=== PATIENT | female | born 1960 | race Caucasian/White ===

== ENCOUNTER 2018-09-16 10:43 | Outpatient (CLI) | payer BC, MEDICARE ==
[~2018-09-16] VITALS: Ht 147.3 cm; Wt 55.0 kg
--- NOTE | ~2018-09-16 | HEMODYNAMI ---
PATIENT:JEN BYRD MEDICAL RECORD: [id number] : 60 LOCATION:[facility] ADMISSION DATE: 09/16/18 Generatedon:09/16/201813:46 Patient name: JEN BYRD Patient #: [id number] SSN: : 1960 Date of study: 09/16/2018 Page: Of Hemodynamic Procedure Report Patient Data Patient Demographics Procedure consent was obtained First Name: JEN Gender: Female Last Name: ROCHELLE : 1960 Patient #: [id number] Age: 58 year(s) Race: Unknown Additional ID: [id number] Contact details [address]: [address] [place] [address] State: [place] City: [place] Zip code: [address] Past Medical History Allergies Allergen Reaction Date Comments Reported Other allergy 09/16/2018 DULOXETINE, PENICILLINS Admission Admission Data Admission Date: 09/16/2018 Admission Time: 10:43 Admit Source: Other Lab Results Lab Result Date: 09/16/2018 Lab Result Time: 11:22 Biochemistry Name Units Result Min Max BUN mg/dl 11 --(-*--)-- 7 18 Creatinine mg/dl 0.7 --(*---)-- 0.6 1.3 CBC Name Units Result Min Max Hematocrit % 40.9 -*(----)-- 42 54 Hemoglobin g/dl 13 -*(----)-- 13.5 17.5 Procedure Procedure Types Cath Procedure Diagnostic Procedure LHC LHC w/Coronaries Sedation Charges Moderate Sedation up to 15 minutes PCI Procedure Coronary Stent Coronary Stent Initial Procedure Description Procedure Date Procedure Date: 09/16/2018 Procedure Start Time: 13:14 Procedure End Time: 13:42 Procedure Staff Name Function Gregorio Mueller MD Performing Physician Serge Moreira RT Monitor Miko Pizarro RT Scrub Cyndee Washington RN Nurse Procedure Data Cath Procedure Fluoroscopy Diagnostic fluoroscopy Total fluoroscopy Time: 4.7 time: 4.7 min min Diagnostic fluoroscopy Total fluoroscopy dose: 402 dose: 402 mGy mGy Contrast Material Contrast Material Type Amount (ml) Isovue 300 118 Entry Location Entry Primary Successful Side Size Upsize Upsize Entry Closure Succes sful Closure Location (Fr) 1 (Fr) 2 (Fr) Remarks Device Remarks Femoral Right 5 Fr 6 Fr Exoseal artery Short Estimated blood loss: 10 ml Diagnostic catheters Device Type Used For End Catheter Placement Medtronic Dexterity 5Fr Procedure JL 4.0 catheter (NO COST SUPPLY) Medtronic Dexterity 5Fr Procedure 3DRC catheter (NO COST SUPPLY) Medtronic Dexterity 5Fr Procedure Pigtail catheter(NO COST SUPPLY) Procedure Complications No complications Procedure Medications Medication Administration Route Dosage Oxygen etCO2 Nasal cannula 2 l/min Lidocaine 2% added to field 20 Heparin Flush Bag added to field 2 bags (1000units/500ml NS) 0.9% NaCl I.V. 100 ml/hr Versed I.V. 1 mg Fentanyl I.V. 50 mcg Versed I.V. 1 mg Fentanyl I.V. 50 mcg Versed I.V. 1 mg Fentanyl I.V. 50 mcg Heparin Bolus I.V. 5500 units Plavix P.O. 600 mg Hemodynamics Rest HGB: 13 (g/dl) Heart Rate: 91 (bpm) Pressure Samples Time Site Value (mmHg) Purpose Heart Use Rate(bpm) 13:24 LV 148/-6,16 Snapshot 98 13:24 LV 149/-5,16 Snapshot 99 Gradients Valve Time Site Site Mean SEP/DFP Peak To Heart Use 1 2 (mmHg) (sec/min) Peak Rate (mmHg) (bpm) Aortic 13:24 LV AO 99 Snapshots Pre Cath Intra NCS Post Cath Vital Signs Time Heart Resp SPO2 etCO2 NIBP (mmHg) Rhythm Pain Sedation Rate (ipm) (%) (mmHg) Status Level (bpm) 13:05:06 90 24 98 27.9 118/81(109) NSR 0 (11) 10(A) , No pain 13:09:08 93 14 96 49.9 120/79(90) NSR 0 (11) 10(A) , No pain 13:13:10 96 14 96 10.6 118/77(102) NSR 0 (11) 10(A) , No pain 13:17:11 95 12 97 16.6 125/79(100) NSR 0 (11) 10(A) , No pain 13:21:13 98 14 97 27.2 135/84(112) NSR 0 (11) 10(A) , No pain 13:25:19 100 14 97 55.2 143/80(109) NSR 0 (11) 10(A) , No pain 13:29:25 98 15 97 23.4 132/87(115) NSR 0 (11) 10(A) , No pain 13:33:28 103 24 97 37.8 135/82(106) NSR 0 (11) 10(A) , No pain 13:37:32 105 19 97 45.3 149/89(126) NSR 0 (11) 10(A) , No pain 13:41:38 105 17 97 43.1 148/94(126) NSR 0 (11) 10(A) , No pain Medications Time Medication Route Dose Verified Delivered Reason Notes Effectiveness by by 13:03:36 Oxygen etCO2 2 Gregorio Buffie used for Nasal l/min Hero Washington RN procedure cannula 13:03:43 Lidocaine 2% added 20ml Gregorio Gregorio for local to vial Hero Mueller MD anesthetic field 13:03:49 Heparin Flush added 2 Gregorio Gregorio used for Bag to bags Hero Mueller MD procedure (1000units/500ml field NS) 13:03:57 0.9% NaCl I.V. 100 Gregorio Buffie Per physician ml/hr Hero Washington RN 13:10:58 Versed I.V. 1 mg Gregorio Buffie for sedation Hero Washington RN 13:11:04 Fentanyl I.V. 50 Gregorio Buffie for sedation mcg Hero Washington RN 13:18:32 Versed I.V. 1 mg Gregorio Buffie for sedation Hero Washington RN 13:18:35 Fentanyl I.V. 50 Gregorio Buffie for sedation mcg Hero Washington RN 13:22:17 Versed I.V. 1 mg Gregorio Buffie for sedation Hero Washington RN 13:22:22 Fentanyl I.V. 50 Gregorio Buffie for sedation mcg Hero Washington RN 13:28:59 Heparin Bolus I.V. 5500 Gregorio Buffie for verif ied units Hero Washington RN anticoagulation with dr mueller 13:38:08 Plavix P.O. 600 Gregorio Buffie for mg Mueller MD Washington RN antiplatelet therapy Procedure Log Time Note 12:36:23 Informed consent obtained and on chart 12:36:27 Admit Source: Other 12:36:50 Diagnostic Cath status Elective 12:36:51 Time tracking: Regular hours (M-F 7:00 - 5:00) 12:36:56 Plan of Care:Hemodynamics will remain stable., Cardiac rhythm will remain stable., Comfort level will be maintained., Respiratory function will remain adequate., Patient/ family verbilizes understanding of procedure., Procedure tolerated without complication., Recovers from procedure without complications.. 12:37:12 H&P Date Dictated: 08/22/2018 Within 30 days and on chart., H&P Addendum completed by physician on day of procedure. (MUST COMPLETE FOR ALL OUTPATIENTS). 12:40:18 Lab Result : BUN 11 mg/dl 12:40:18 Lab Result : Creatinine 0.7 mg/dl 12:40:18 Lab Result : Hemoglobin 13 g/dl 12:40:18 Lab Result : Hematocrit 40.9 % 12:40:20 Lab results completed and on chart. 12:44:18 Miko Pizarro RT(R) sent for patient. Start room use. 12:50:18 Patient received from Pre/Post Procedure Room to CCL 2 Alert and oriented. Tansferred to table in Supine position. 12:50:20 Warm blankets applied, and daniel hugger turned on for patient comfort. 12:50:20 Correct patient and procedure confirmed by team. 12:50:21 ECG and BP/O2 sat monitors applied to patient. 12:50:23 Pre-procedure instructions explained to patient. 12:50:23 Pre-op teaching completed and patient verbalized understanding. 12:50:24 Family in waiting room. 12:50:25 Patient NPO since Midnight. 12:50:45 Patient allergic to Other allergyDULOXETINE, PENICILLINS 13:03:36 Oxygen 2 l/min etCO2 Nasal cannula was administered by Cyndee Washington RN; used for procedure; 13:03:43 Lidocaine 2% 20ml vial added to field was administered by Gregorio Mueller MD; for local anesthetic; 13:03:49 Heparin Flush Bag (1000units/500ml NS) 2 bags added to field was administered by Gregorio Mueller MD; used for procedure; 13:03:57 0.9% NaCl 100 ml/hr I.V. was administered by Cyndee Washington RN; Per physician; 13:04:01 Vital chart was started 13:07:34 Baseline sample Acquired. 13:07:40 Rhythm: sinus rhythm 13:07:41 Full Disclosure recording started 13:08:29 Is the patient allergic to Iodine/contrast media? No. 13:08:40 Is patient on blood thinner?No 13:08:41 Patient diabetic? Yes. 13:08:42 If diabetic: On Metformin? Yes 13:08:47 If on Metformin: Last Dose? 09/13/2018 13:08:51 Previous problem with sedation/anesthesia? No ? 13:08:54 Snore? Yes 13:08:55 Sleep apnea? No 13:08:55 Deviated septum? No 13:08:56 Opens mouth fully? Yes 13:08:57 Sticks out tongue? Yes 13:09:01 Airway obstruction? Yes COPD 13:09:05 Dentures? No ? 13:09:08 Pre procedure: right dorsailis pedis pulse 2+ Normal; easily identifiable; not easily obliterated 13:09:09 Patient pain scale 0/10 ?. 13:09:15 IV patent on arrival in left forearm with 0.9% NaCl at [facility]. 13:09:20 Right groin area was prepped with chlora-prep and draped in sterile fashion 13:09:20 Alarms reviewed by R. N. 13:09:21 Sharps counted by scrub and verified by R.N. 13:09:23 ACIST Syringe (54650) opened to sterile field. 13:09:24 Bag Decanter (2002) opened to sterile field. 13:09:24 Medline Cath Pack ([id number]) opened to sterile field. 13:09:27 ACIST Hand Control (69720) opened to sterile field. 13:09:28 ACIST Manifold (52371) opened to sterile field. 13:09:29 Tegaderm 4 x 4 (1626W) opened to sterile field. 13:09:30 SHEATH Prelude 5Fr 0.035 (ZWN-8C-57-035) opened to sterile field. 13:09:31 DIAGNOSTIC WIRE .035 260cm J wire (491743) opened to sterile field. 13:09:41 Physician arrived 13:09:42 --------ALL STOP TIME OUT------ 13::42 Final Timeout: patient, procedure, and site verified with staff and physician. All members of the team are in agreement. 13:09:44 Right groin site verified by team. 13:09:47 Physical assessment completed. ASA score P 2 - A patient with mild systemic disease as per Gregorio Mueller MD. 13:09:49 Sedation plan: IV Moderate Sedation Medication:Versed, Fentanyl 13:10:58 Versed 1 mg I.V. was administered by Cyndee Washington RN; for sedation; 13:11:04 Fentanyl 50 mcg I.V. was administered by Cyndee Washington RN; for sedation; 13:14:56 Procedure started. 13:14:59 Local anesthetic to right femoral artery with Lidocaine 2% by Gregorio Mueller MD.INITIAL ACCESS ONLY 13:17:18 A 5 Fr sheath was inserted into the Right Femoral artery 13:17:21 Zero performed for pressure channel P1 13:17:24 Zero performed for pressure channel P1 13:17:27 Zero performed for pressure channel P1 13:17:29 Zero performed for pressure channel P1 13:17:32 Zero performed for pressure channel P1 13:17:35 Zero performed for pressure channel P1 13:17:48 A Medtronic Dexterity 5Fr JL 4.0 catheter (NO COST SUPPLY) was advanced over the wire and used for Procedure. 13:18:32 Versed 1 mg I.V. was administered by Cyndee Washington RN; for sedation; 13:18:35 Fentanyl 50 mcg I.V. was administered by Cyndee Washington RN; for sedation; 13:19:07 LCA angiography performed. 13:20:45 Catheter exchanged over wire. 13:20:49 A Medtronic Dexterity 5Fr 3DRC catheter (NO COST SUPPLY) was advanced over the wire and used for Procedure. 13:21:59 RCA angiography performed. 13:22:17 Versed 1 mg I.V. was administered by Cyndee Washington RN; for sedation; 13:22:22 Fentanyl 50 mcg I.V. was administered by Cyndee Washington RN; for sedation; 13:22:33 Catheter exchanged over wire. 13:22:56 A Medtronic Dexterity 5Fr Pigtail catheter(NO COST SUPPLY) was advanced over the wire and used for Procedure. 13:23:17 SHEATH Prelude 6Fr 0.035 (OGN-8Z-37-035) opened to sterile field. 13:23:29 BMW 300cm [place] 2 J wire ([id number]) opened to sterile field. 13:23:30 INFLATOR Merit BasixCompak (VD3800) opened to sterile field. 13:23:35 TUBING High Pressure Extension Tubing (Hero) ([id number]) opened to sterile field. 13:24:15 LV gram done using RESENDIZ 13::18 Injector settings: Ml/sec: 10, Volume: 20, 13:24:19 LV hemodynamics recorded. 13:24:25 EF : 60 % 13:24:38 Catheter removed. 13:26:57 Sheath upsized to a 6 Fr Short. 13:27:45 GUIDE 6FR JR 4.0 catheter ([id number]) opened to sterile field. 13:27:51 6 Fr JR 4 guide catheter was inserted over the wire 13:28:59 Heparin Bolus 5500 units I.V. was administered by Cyndee Washington RN; for anticoagulation; verified with dr mueller 13:29:29 BMW wire advanced. 13:30:37 Wire advanced across lesion. 13:33:16 Place stent Inflation Number: 1 A INTEGRITY OTW 3.0 X 22 stent ([id number]) was prepped and advanced across the Prox RCA. The stent was deployed at 14 ZACHARY for 0:10 (min:sec). 13:34:02 Stent catheter was removed intact over wire. 13:34:02 Wire removed. 13:34:04 Guide catheter removed. 13:34:09 EXOSEAL 6Fr (EX600) opened to sterile field. 13:34:15 Sheath removed intact; hemostasis achieved with Exoseal to the Right Femoral artery. 13:34:17 Procedure ended.(Physican Out) 13:35:12 Fluoroscopy time 04.70 minutes. 13:35:15 Fluoroscopy dose: 402 mGy 13:35:15 Flurop Dose total: 402 13:35:19 Contrast amount:Isovue 300 118ml. 13:35:21 Sharps counted by scrub and verified by R.N. 13:35:25 Insertion/operative site no bleeding no hematoma. 13:35:28 Post-op/insertion site Right Femoral artery dressed using a 4 x 4 and Tegaderm. 13:35:32 Post right femoral artery:stable, soft, clean and dry 13:35:33 Post Procedure Pulses reassessed and unchanged 13:35:36 Post-procedure physical assessment completed. ASA score P 2 - A patient with mild systemic disease as per Gregorio Mueller MD. 13:35:38 Post procedure rhythm: unchanged. 13:35:41 Estimated blood loss: 10 ml 13:35:46 Post procedure instruction explained to patient.Patient verbalizes understanding. 13:35:47 Patient needs reinforcement of post procedure teaching. 13:36:05 Procedure type changed to Cath procedure, Diagnostic procedure, LHC, LHC w/Coronaries, Sedation Charges, Moderate Sedation up to 15 minutes, PCI procedure, Coronary Stent, Coronary Stent Initial 13:38:08 Plavix 600 mg P.O. was administered by Cyndee Washington RN; for antiplatelet therapy; 13:41:49 Procedure and supply charges have been captured, reviewed, submitted and are correct. 13:41:51 Procedure Complication : No complications 13:41:53 Vital chart was stopped 13:42:48 See physician's report for complete and final results. 13:42:50 Report given to Pre/Post Procedure Room. 13:42:53 Patient transfered to Pre/Post Procedure Room with Stretcher. 13:42:54 Procedure ended. 13:42:54 Full Disclosure recording stopped 13:42:59 End room use (Document Last) Intervention Summary Intervention Notes Time ActionType Lesion and Equipment Action# Pressure Duration Attributes Used 13:33:16 Place stent Prox RCA INTEGRITY 1 14 00:10 OTW 3.0 X 22 stent ([id number]) Device Usage Item Name Manufacture Quantity Catalog Number Hospital Part Current Minimal Lot# / Charge Number Stock Stock Serial# Code ACIST Syringe Acist 1 35523 481561 130153 [id number] 20 (25970) [employer] Bag Decanter Microtek 1 241571 93278 453686 5 () Medical Inc. Medline Cath Medline 1 [id number] 058433 37972 380246 5 Pack ([id number]) ACIST Hand Acist 1 12356 511793 237033 211174 5 Control (61563) [employer] Inc ACIST Manifold Acist 1 52266 908079 322804 096018 5 (12279) [employer] Inc Tegaderm 4 x 4 3M 1 1626W 126392 829775 758400 5 (1626W) SHEATH Prelude Merit 1 TKD-5M-20-035 649706 041193 595533 5 5Fr 0.035 Medical (NGX-1R-73-035) DIAGNOSTIC WIRE [place] 1 252754 965298 714560 515183 30 .035 260cm J wire (933188) Medtronic Medtronic 1 [id number] 738124 941710 5 Dexterity 5Fr JL 4.0 catheter (NO COST SUPPLY) Medtronic Medtronic 1 [id number] 445392 052875 5 Dexterity 5Fr 3DRC catheter (NO COST SUPPLY) Medtronic Medtronic 1 [id number] 993863 421881 5 Dexterity 5Fr Pigtail catheter(NO COST SUPPLY) SHEATH Prelude Merit 1 BAZ-0N-07-35 985384 7006645 867078 5 6Fr 0.035 Medical (ISW-6M-46-035) BMW 300cm [place] 1 [id number] 462829 814640 516786 5 [place] 2 J Vascular wire ([id number]) INFLATOR Merit Merit 1 FU8201 616180 001667 614600 15 [employer] (DV5424) TUBING High Merit 1 [id number] 671481 85532 130091 10 Pressure Medical Extension Tubing (Mueller) ([id number]) GUIDE 6FR JR Medtronic 1 [id number] 334817 49701 790502 1 4.0 catheter (GJ1UI67) INTEGRITY OTW Medtronic 1 [id number] 769644 067555 0 [id number] 3.0 X 22 stent ([id number]) EXOSEAL 6Fr Cardinal 1 EX600 312780 161892 594045 10 (EX600) Health Signature Audit [place] Stage Time Signature Unsigned Intra-Procedure 09/16/2018 Serge Moreira 1:46:31 PM RT(R) Signatures Monitor : Serge Moreira RT Signature : Date : Time : [facility] [address] [place], [place] [id number]
[2018-09-16] MEDS ORDERED: NEURONTIN 300300 MG PO (11:02)
[2018-09-16] MEDS ORDERED: GLUCOPHAGE850 MG PO (11:03)
[2018-09-16] MEDS ORDERED: KLONOPIN1 MG PO (11:03)
[2018-09-16] MEDS ORDERED: SINGULAIR10 MG PO (11:03)
[2018-09-16] MEDS ORDERED: LEVOXYL25 MCG PO (11:03)
[2018-09-16] MEDS ORDERED: ZANAFLEX2 M1 (11:04)
[2018-09-16] MEDS ORDERED: ALBUTEROL SULF8.5 GM INH (11:05)
[2018-09-16] MEDS ORDERED: BUPROPION HCL100 M1 PO (11:06)
[2018-09-16 11:07] VITALS: BP 158/77; Ht 147.3 cm; Wt 55.0 kg
[2018-09-16 11:30] LABS: BASOPHILS 0.1 % (0-2); EOSINOPHILS 2.2 % (0-7); HEMATOCRIT 40.9 % (36.0-48.0); IMMATURE GRANULOCYTES 0.3 % (0-5); LYMPHOCYTES 22.7 % (15-50); MCH 27.4 pg (26.0-34.0); MCHC 31.8 g/dL (31.0-37.0); MCV 86.1 fL (80.0-100.0); MONOCYTES 8.8 % (2-11); NEUTROPHILS 65.9 % (40-80); PLATELET COUNT 319 10x3/uL (130-400); RBC 4.75 10x6/uL (4.00-5.40); RDW 13.1 % (11.5-14.5)
[2018-09-16 11:37] LABS: CALC OSMOLALITY 281 mosm/kg (275-300); CALCIUM 8.9 mg/dL (8.5-10.1); CARBON DIOXIDE 38.4 mmol/L (21.0-32.0); CHLORIDE - SERUM 100 mmol/L (98-107); CREATININE - SERUM 0.7 mg/dL (0.6-1.3); GLUCOSE 170 mg/dL (74-106); POTASSIUM - SERUM 4.1 mmol/L (3.5-5.1); SODIUM 140 mmol/L (136-145); UREA NITROGEN 11 mg/dL (7-18); eGFR NON AFRICAN AMERICAN > 90 mL/min (90-120)
[2018-09-16] MEDS ORDERED: PLAVIX75 MG PO (13:51)
== END 2018-09-16 17:33 | disposition home or self-care (01) ==
LOC: D.CATH 10:43
PROVIDERS: Internal Medicine Cardiovascular Disease
DX: I25.119 Atherosclerotic heart disease of native coronary artery with unspecified angina pectoris (principal); Z01.812 Encounter for preprocedural laboratory examination

== ENCOUNTER → 2018-12-05 10:07 | Outpatient (CLI) | payer BC ==
[2018-09-16 11:07] VITALS: BMI 25.3
[~2018-12-05 10:07] MED LIST: ALBUTEROL SULF8.5 GM INH; BUPROPION HCL100 M1 PO; GLUCOPHAGE850 MG PO; KLONOPIN1 MG PO; LEVOXYL25 MCG PO; NEURONTIN 300300 MG PO; PLAVIX75 MG PO; SINGULAIR10 MG PO; ZANAFLEX2 M1
== END | disposition home or self-care (01) ==
LOC: D.RAD 10:07
DX: J44.9 Chronic obstructive pulmonary disease, unspecified (principal)

== ENCOUNTER → 2019-01-30 08:00 | Outpatient (CLI) | payer BC ==
[2018-09-16 11:07] VITALS: BMI 25.3
[~2019-01-30 08:00] MED LIST changes: +BAYER CHEWABLE81 MG PO; +CARTIA XT120 MG PO; +ISOSORBIDE MONO30 M1 PO; +SYMBICORT 16010.2 GM INH
== END | disposition home or self-care (01) ==
LOC: D.MAMMO 01-15 16:15
PROVIDERS: ATTEND Family Medicine
DX: Z12.31 Encounter for screening mammogram for malignant neoplasm of breast (principal)

== ENCOUNTER 2019-02-02 10:36 | Outpatient (CLI) | payer BC ==
[~2019-02-02] VITALS: Ht 147.3 cm; Wt 59.1 kg
--- NOTE | ~2019-02-02 | HEMODYNAMI ---
PATIENT:JEN BYRD MEDICAL RECORD: [id number] : 60 LOCATION:D.CAT ADMISSION DATE: 02/02/19 Generatedon:02/02/201915:54 Patient name: JEN BYRD Patient #: [id number] SSN: : 1960 Date of study: 02/02/2019 Page: Of Hemodynamic Procedure Report Patient Data Patient Demographics Procedure consent was obtained First Name: JEN Gender: Female Last Name: ROCHELLE : 1960 [facility] Initial: K Age: 58 year(s) Patient #: [id number] Race: Unknown Additional ID: [id number] Contact details [address]: [address] [place] [address] State: [place] City: [place] Zip code: [address] Past Medical History Allergies Allergen Reaction Date Comments Reported Other allergy 09/16/2018 DULOXETINE, PENICILLINS Penicillins 02/02/2019 Admission Admission Data Admission Date: 02/02/2019 Admission Time: 10:36 Procedure Procedure Types Cath Procedure Diagnostic Procedure [facility] w/Coronaries Sedation Charges Moderate Sedation up to 45 minutes PCI Procedure Coronary Stent Coronary Stent Initial Procedure Description Procedure Date Procedure Date: 02/02/2019 Procedure Start Time: 15:22 Procedure End Time: 15:48 Procedure Staff Name Function Jyoti Hensley RT Scrub Gregorio Monahan MD Performing Physician Carlos Eduardo Valenzuela RN Nurse Angelo Johnson RT Monitor Sylvia Nuno RT Scrub Miko Pizarro RT Monitor Procedure Data Cath Procedure Fluoroscopy Diagnostic fluoroscopy Total fluoroscopy Time: 3.6 time: 3.6 min min Diagnostic fluoroscopy Total fluoroscopy dose: 111 dose: 111 mGy mGy Contrast Material Contrast Material Type Amount (ml) Isovue 300 88 Entry Location Entry Primary Successful Side Size Upsize Upsize Entry Closure Succes sful Closure Location (Fr) 1 (Fr) 2 (Fr) Remarks Device Remarks Femoral Right 5 Fr 6 Fr Exoseal artery Short Estimated blood loss: 10 ml Diagnostic catheters Device Type Used For End Catheter Placement MULTIPACK JL 4.0 5Fr Procedure catheter MULTIPACK 3DRC 5Fr Procedure catheter MULTIPACK Pigtail 5 Fr Procedure catheter Procedure Complications No complications Procedure Medications Medication Administration Route Dosage 0.9% NaCl I.V. 100 ml/hr Oxygen NC 2 l/min Heparin Flush Bag added to field 2 bags (1000units/500ml NS) Lidocaine 2% added to field 20 Versed I.V. 2 mg Fentanyl I.V. 100 mcg Versed I.V. 1 mg Versed I.V. 1 mg Versed I.V. 1 mg Fentanyl I.V. 100 mcg Versed I.V. 1 mg Heparin Bolus I.V. 6000 units Nitroglycerin IC/IA I.C. 100 mcg Plavix P.O. 600 mg Hemodynamics Rest Heart Rate: 73 (bpm) Pressure Samples Time Site Value (mmHg) Purpose Heart Use Rate(bpm) 15:33 LV 137/-1,26 Snapshot 87 15:34 LV 133/-4,21 Snapshot 83 15:34 AO 141/70(98) Pullback 83 15:34 LV 159/-6,17 Pullback 83 Gradients Valve Time Site 1 Site 2 Mean SEP/DFP Peak To Heart Use (mmHg) (sec/min) Peak Rate (mmHg) (bpm) Aortic 15:34 LV AO 9 23 18 83 159/-6,17 141/70(98) Calculations Valve P-P Mean Valve Index Valve Source Name Gradient Area Flow (cm2) Aortic 18 9 18 9 Snapshots Pre Cath Intra NCS Post Cath Vital Signs Time Heart Resp SPO2 etCO2 NIBP (mmHg) Rhythm Pain Sedation Rate (ipm) (%) (mmHg) Status Level (bpm) 14:33:53 68 44 97 0 134/66(102) NSR 0 (11) 10(A) , No pain 14:38:03 78 15 90 0 120/81(99) NSR 0 (11) 10(A) , No pain 14:42:11 76 10 94 0 123/75(115) NSR 0 (11) 10(A) , No pain 14:46:19 75 14 97 0 141/71(108) NSR 0 (11) 10(A) , No pain 14:50:35 78 16 97 0 123/70(110) NSR 0 (11) 10(A) , No pain 14:54:45 76 11 97 0 126/67(106) NSR 0 (11) 10(A) , No pain 14:58:55 81 21 97 0 132/72(110) NSR 0 (11) 10(A) , No pain 15:03:09 79 24 97 0 139/67(95) NSR 0 (11) 10(A) , No pain 15:07:25 81 23 97 0 129/68(106) NSR 0 (11) 10(A) , No pain 15:17:54 82 16 97 0 154/83(119) NSR 0 (11) 10(A) , No pain 15:22:18 80 18 96 0 146/78(120) NSR 0 (11) 10(A) , No pain 15:26:30 84 30 92 0 120/79(101) NSR 0 (11) 9(A) , No pain 15:30:38 88 17 86 0 132/93(108) NSR 0 (11) 9(A) , No pain 15:34:54 83 16 91 0 140/81(126) NSR 0 (11) 9(A) , No pain 15:39:10 82 19 95 0 126/75(91) NSR 0 (11) 9(A) , No pain 15:43:26 84 15 96 0 120/73(100) NSR 0 (11) 9(A) , No pain 15:47:38 86 12 96 0 136/79(116) NSR 0 (11) 9(A) , No pain Medications Time Medication Route Dose Verified Delivered Reason Notes Effectiveness by by 14:31:55 0.9% NaCl I.V. 100 Carlos Eduardo Carlos Eduardo Per physician ml/hr Bianca Valnezuela RN, RN 14:32:10 Oxygen NC 2 Carlos Eduardo Carlos Eduardo for low 02 sats l/min Bianca Valenzuela RN RN 14:32:20 Heparin Flush added 2 Carlos Eduardo Carlos Eduardo used for Bag to bags Bianca Valenzuela procedure (1000units/500ml field CHANCE RN NS) 14:32:30 Lidocaine 2% added 20ml Carlos Eduardo Carlos Eduardo for local to vial Bianca Valenzuela anesthetic field MERON CHANCE 14:35:39 Versed I.V. 2 mg Carlos Eduardo Carlos Eduardo for sedation Bianca Valenzuela RN, RN 14:35:50 Fentanyl I.V. 100 Carlos Eduardo Carlos Eduardo for sedation mcg Bianca Valenzuela RN, RN 14:58:35 Versed I.V. 1 mg Carlos Eduardo Carlos Eduardo for sedation Bianca Valenzuela RN RN 15:17:56 Versed I.V. 1 mg Carlos Eduardo Carlos Eduardo for sedation Bianca Valenzuela RN RN 15:22:39 Versed I.V. 1 mg Carlos Eduardo Carlos Eduardo for sedation Bianca Valenzuela RN RN 15:24:48 Fentanyl I.V. 100 Carlos Eduardo Carlos Eduardo for sedation mcg Bianca Valenzuela RN RN 15:24:57 Versed I.V. 1 mg Carlos Eduardo Carlos Eduardo for sedation Bianca Valenzuela RN RN 15:38:28 Heparin Bolus I.V. 6,000 Carlos Eduardo Carlos Eduardo for units Bianca Valenzuela anticoagulation RN RN 15:39:18 Nitroglycerin I.C. 100 Carlos Eduardo Gregorio for IC/IA mcg Bianca Monahan MD vasodilation RN 15:47:24 Plavix P.O. 600 Carlos Eduardo Carlos Eduardo for mg Bianca Valenzuela antiplatelet RN RN therapy Procedure Log Time Note 14:20:39 Carlos Eduardo Valenzuela RN sent for patient. Start room use. 14:22:46 Time tracking: Regular hours (M-F 7:00 - 5:00) 14:22:50 Plan of Care:Hemodynamics will remain stable., Cardiac rhythm will remain stable., Comfort level will be maintained., Respiratory function will remain adequate., Patient/ family verbilizes understanding of procedure., Procedure tolerated without complication., Recovers from procedure without complications.. 14:22:54 Patient received from Pre/Post Procedure Room to CCL 2 Alert and oriented. Tansferred to table in Supine position. 14:22:55 Warm blankets applied, and daniel hugger turned on for patient comfort. 14:22:56 Correct patient and procedure confirmed by team. 14:22:57 Signed procedure consent form obtained from patient. 14:22:58 ECG and BP/O2 sat monitors applied to patient. 14:31:55 0.9% NaCl 100 ml/hr I.V. was administered by Carlos Eduardo Valenzuela RN; Per physician; 14:32:10 Oxygen 2 l/min NC was administered by Carlos Eduardo Valenzuela RN; for low 02 sats; 14:32:20 Heparin Flush Bag (1000units/500ml NS) 2 bags added to field was administered by Carlos Eduardo Valenzuela RN; used for procedure; 14:32:30 Lidocaine 2% 20ml vial added to field was administered by Carlos Eduardo Valenzuela RN; for local anesthetic; 14:32:42 Vital chart was started 14:33:16 Baseline sample Acquired. 14:33:19 Rhythm: sinus rhythm 14:33:20 Full Disclosure recording started 14:33:24 H&P Date Dictated: 02/02/2019 Within 30 days and on chart.. 14:33:25 Pre-op teaching completed and patient verbalized understanding. 14:33:25 Pre-procedure instructions explained to patient. 14:33:27 Family in patients room. 14:33:29 Patient NPO since Midnight. 14:33:36 Patient allergic to Penicillins 14:33:39 Is the patient allergic to Iodine/contrast media? No. 14:33:43 Was the patient premedicated? No 14:33:45 Is patient on blood thinner?No 14:33:46 Patient diabetic? Yes. 14:33:47 If diabetic: On Metformin? Yes 14:33:51 If on Metformin: Last Dose? 01/31/2019 14:33:53 ----Pre-sedation anethsthesia assessment.---- 14:33:55 Previous problem with sedation/anesthesia? No ? 14:33:56 Snore? Yes 14:33:58 Sleep apnea? No 14:33:59 Deviated septum? No 14:34:00 Opens mouth fully? Yes 14:34:01 Sticks out tongue? Yes 14:34:06 Airway obstruction? Yes COPD 14:34:09 Dentures? No ? 14:34:12 Pre procedure: right dorsailis pedis pulse 2+ Normal; easily identifiable; not easily obliterated 14:34:16 Patient pain scale 0/10 ?. 14:34:29 IV patent on arrival in left antecubital with 0.9% NaCl at 10ml/hr. 14:34:32 Lab results completed and on chart. 14:34:40 Right groin area was prepped with chlora-prep and draped in sterile fashion 14:34:44 Alarms reviewed by R. N. 14:34:45 Sharps counted by scrub and verified by R.N. 14:34:46 Final Timeout: patient, procedure, and site verified with staff and physician. All members of the team are in agreement. 14:34:46 --------ALL STOP TIME OUT------ 14:34:46 Physician arrived 14:34:48 Right groin site verified by team. 14:34:52 Maximum allowable Isovue 300 dose 300ml. Physician notified. (300ml for normal creatinines. For patients with creatinine of 1.7 or higher multiply weight(kg) x 5 divided by creatinine.) 14:34:56 Fire Safety Assessment: A--An alcohol-based skin anteseptic being used preoperatively., C--Open oxygen or nitrous oxide is being used., D--An ESU, laser, or fiber-optic light is being used. 14:34:59 Physical assessment completed. ASA score P 2 - A patient with mild systemic disease as per Gregorio Monahan MD. 14:35:02 Sedation plan: IV Moderate Sedation Medication:Versed, Fentanyl 14:35:39 Versed 2 mg I.V. was administered by Carlos Eduardo Valenzuela RN; for sedation; 14:35:50 Fentanyl 100 mcg I.V. was administered by Carlos Eduardo Valenzuela RN; for sedation; 14:58:35 Versed 1 mg I.V. was administered by Carlos Eduardo Valenzuela RN; for sedation; 15:01:39 rebooting the so 15:08:35 moving pt to room #3 secondary backup room to room#3 15:09:07 Full Disclosure recording stopped 15:13:54 PATIENT ARRIVED TO ROOM 3. TRANSFERRED TO BED. 15:14:07 Warm blankets applied, and daniel hugger turned on for patient comfort. 15:14:09 ECG and BP/O2 sat monitors applied to patient. 15:16:36 Vital chart was started 15:17:56 Versed 1 mg I.V. was administered by Carlos Eduardo Valenzuela RN; for sedation; 15:19:53 Baseline sample Acquired. 15:20:04 --------ALL STOP TIME OUT------ 15:20:04 Final Timeout: patient, procedure, and site verified with staff and physician. All members of the team are in agreement. 15:20:06 Right groin site verified by team. 15:20:09 Maximum allowable Isovue 300 dose 300ml. Physician notified. (300ml for normal creatinines. For patients with creatinine of 1.7 or higher multiply weight(kg) x 5 divided by creatinine.) 15:20:12 Fire Safety Assessment: A--An alcohol-based skin anteseptic being used preoperatively., C--Open oxygen or nitrous oxide is being used., D--An ESU, laser, or fiber-optic light is being used. 15:20:18 Physical assessment completed. ASA score P 2 - A patient with mild systemic disease as per Gregorio Monahan MD. 15::26 Sedation plan: IV Moderate Sedation Medication:Versed, Fentanyl 15::24 Zero performed for pressure channel P1 15::27 Procedure started. 15:: Full Disclosure recording started 15::37 Local anesthetic to right femoral artery with Lidocaine 2% by Gregorio Monahan MD.INITIAL ACCESS ONLY 15::39 Versed 1 mg I.V. was administered by Carlos Eduardo Valenzuela RN; for sedation; 15:23:24 Use device set Femoral Dx 15:23:26 ACIST Syringe (02287) opened to sterile field. 15:23:32 Bag Decanter (2002S) opened to sterile field. 15:23:33 ACIST Hand Control (18631) opened to sterile field. 15:23:34 ACIST Manifold (43505) opened to sterile field. 15:23:34 Tegaderm 4 x 4 (1626W) opened to sterile field. 15:23:38 Medline Cath Pack ([id number]) opened to sterile field. 15:23:38 DIAGNOSTIC WIRE .035 260cm J wire (553627) opened to sterile field. 15:23:39 DIAGNOSTIC Multipack 5Fr catheter set (OW8125) opened to sterile field. 15:23:40 SHEATH 5FR Bylas (EGS042) opened to sterile field. 15:24:11 Zero performed for pressure channel P1 15:24:48 Fentanyl 100 mcg I.V. was administered by Carlos Eduardo Valenzuela RN; for sedation; 15::57 Versed 1 mg I.V. was administered by Carlos Eduardo Valenzuela RN; for sedation; 15:28:43 A 5 Fr sheath was inserted into the Right Femoral artery 15:29:15 A MULTIPACK JL 4.0 5Fr catheter was advanced over the wire and used for Procedure. 15:30:36 LCA angiography performed. 15:30:38 Catheter exchanged over wire. 15:31:03 A MULTIPACK 3DRC 5Fr catheter was advanced over the wire and used for Procedure. 15:32:07 RCA angiography performed. 15:32:16 Catheter exchanged over wire. 15:32:28 A MULTIPACK Pigtail 5 Fr catheter was advanced over the wire and used for Procedure. 15:33:34 LV gram done using RESENDIZ 15:33:36 Injector settings: Ml/sec: 10, Volume: 20, 15:34:04 LV hemodynamics recorded. 15:34:25 EF : 60 % 15:35:12 SHEATH 6FR Bylas (JVO745) opened to sterile field. 15:35:12 INFLATOR Merit BasixCompak (IM2391) opened to sterile field. 15:35:13 BMW 300cm Straight [place] 2 wire ([id number]) opened to sterile field. 15:35:14 TUBING High Pressure Extension Tubing (Hero) ([id number]) opened to sterile field. 15:35:46 Sheath upsized to a 6 Fr Short. 15:36:12 GUIDE 6FR 3DRC catheter ([id number]) opened to sterile field. 15:36:46 6 Fr 3DRC guide catheter was inserted over the wire 15:38:28 Heparin Bolus 6,000 units I.V. was administered by Carlos Eduardo Valenzuela RN; for anticoagulation; 15:39:18 Nitroglycerin IC/IA 100 mcg I.C. was administered by Gregorio Monahan MD; for vasodilation; 15:41:00 BMW 300 wire advanced. 15:41:01 Wire advanced across lesion. 15:44:22 Place stent Inflation Number: 1 A JOSE J RX 3.0 x 30 stent ([id number]) was prepped and advanced across the Prox RCA. The stent was deployed at 12 ZACHARY for 0:10 (min:sec). 15:44:52 Stent catheter was removed intact over wire. 15:44:52 Wire removed. 15:44:54 Guide catheter removed. 15:45:28 EXOSEAL 6Fr (EX600) opened to sterile field. 15:46:20 Sheath removed intact; hemostasis achieved with Exoseal to the Right Femoral artery. 15:46:23 Procedure ended.(Physican Out) 15:46:43 Fluoroscopy time 03.60 minutes. 15:46:48 Fluoroscopy dose: 111 mGy 15:46:48 Flurop Dose total: 111 15:46:52 Contrast amount:Isovue 300 88ml. 15:46:54 Sharps counted by scrub and verified by R.N. 15:46:56 Post-op/insertion site Right Femoral artery dressed using a 4 x 4 and Tegaderm. 15:47:00 Post-procedure physical assessment completed. ASA score P 2 - A patient with mild systemic disease as per Carlos Eduardo Valenzuela RN. 15:47:04 Post procedure rhythm: sinus rhythm 15:47:11 Estimated blood loss: 10 ml 15:47:12 Post procedure instruction explained to patient.Patient verbalizes understanding. 15:47:12 Patient needs reinforcement of post procedure teaching. 15:47:24 Plavix 600 mg P.O. was administered by Carlos Eduardo Valenzuela RN; for antiplatelet therapy; 15:47:45 Procedure type changed to Cath procedure, Diagnostic procedure, LHC, LHC w/Coronaries, Sedation Charges, Moderate Sedation up to 45 minutes, PCI procedure, Coronary Stent, Coronary Stent Initial 15:48:18 Procedure and supply charges have been captured, reviewed, submitted and are correct. 15:48:21 Procedure Complication : No complications 15:48:24 Vital chart was stopped 15:48:24 See physician's report for complete and final results. 15:48:26 Report given to Pre/Post Procedure Room. 15:48:29 Patient transfered to Pre/Post Procedure Room with Bed. 15:48:30 Procedure ended. 15:48:30 Full Disclosure recording stopped 15:48:34 End room use (Document Last) Intervention Summary Intervention Notes Time ActionType Lesion and Equipment Used Action# Pressure Duration Attributes 15:44:[address] stent Prox RCA JOSE J RX 3.0 x 1 12 00:10 30 stent ([id number]) Device Usage Item Name Manufacture Quantity Catalog Hospital Part [facility] Lot# / Number Charge Number Stock Stock Serial# Code ACIST Syringe Acist 1 80723 665192 185697 836963 20 (33204) Medical Systems Inc Bag Decanter Microtek 1 559841 55575 743340 5 () Medical Inc. ACIST Hand Acist 1 59615 626194 898560 077016 5 Control Medical (59149) Systems Inc ACIST Manifold Acist 1 44780 833930 320696 331896 5 (86913) Medical Systems Inc Tegaderm 4 x 4 3M 1 1626W 127882 963955 219928 5 (1626W) Medline Cath Medline 1 [id number] 328026 67208 108154 5 Pack ([id number]) DIAGNOSTIC [place] 1 153845 980184 687435 162985 30 WIRE .035 260cm J wire (714223) DIAGNOSTIC Cardinal 1 YA7461 453970 01802 936671 30 Multipack 5Fr Health catheter set (TP8423) SHEATH 5FR Terumo 1 QBJ439 126873 860860 018539 5 Bylas (XZU032) MULTIPACK JL Cardinal 1 346144 5 4.0 5Fr Health catheter MULTIPACK 3DRC Cardinal 1 213031 5 5Fr catheter Health MULTIPACK Cardinal 1 218528 5 Pigtail 5 Fr Health catheter SHEATH 6FR Terumo 1 PIH138 822227 062933 991241 40 Bylas (VXO072) INFLATOR Merit Merit 1 ZB5059 529967 587970 952040 15 [facility] (NZ8726) BMW 300cm [place] 1 [id number] 659750 660124 842956 5 Straight Vascular [place] 2 wire (6885066) TUBING High Merit 1 [id number] 152463 50464 337952 10 Pressure Medical Extension Tubing (Monahan) ([id number]) GUIDE 6FR 3DRC Medtronic 1 [id number] 969660 813619 761378 1 catheter (DY88VEL) JOSE J RX 3.0 x Medtronic 1 [id number] 954941 1814728 348190 5 [id number] 30 stent ([id number]) EXOSEAL 6Fr Cardinal 1 EX600 730109 357670 437202 10 (EX600) Health Signature Audit [place] Stage Time Signature Unsigned Intra-Procedure 02/02/2019 Sylvia Nuno 3:54:18 PM RT(R) Signatures Monitor : Angelo Johnson RT Signature : Date : Time : Monitor : Miko Pizarro RT Signature : Date : Time : [address] [place] [address]
[~2019-02-02 10:36] MED LIST changes: -BAYER CHEWABLE81 MG PO; -CARTIA XT120 MG PO; -ISOSORBIDE MONO30 M1 PO; -SYMBICORT 16010.2 GM INH
[2019-02-02] MEDS ORDERED: ISOSORBIDE MONO30 M1 PO (10:52)
[2019-02-02] MEDS ORDERED: CARTIA XT120 MG PO (10:52)
[2019-02-02] MEDS ORDERED: SYMBICORT 16010.2 GM INH (10:54)
[2019-02-02 11:05] VITALS: BP 174/71; Ht 147.3 cm; Wt 59.1 kg
[2019-02-02 11:13] LABS: BASOPHILS 0.2 % (0-2); EOSINOPHILS 1.9 % (0-7); HEMATOCRIT 38.6 % (36.0-48.0); HEMOGLOBIN 11.8 g/dL (12-16); IMMATURE GRANULOCYTES 0.5 % (0-5); LYMPHOCYTES 24.8 % (15-50); MCHC 30.6 g/dL (31.0-37.0); MCV 88.3 fL (80.0-100.0); MEAN PLATELET VOLUME 9.5 fL (7.4-10.4); MONOCYTES 7.6 % (2-11); PLATELET COUNT 312 10x3/uL (130-400); RBC 4.37 10x6/uL (4.00-5.40); WBC 10.5 10x3/uL (4.8-10.8)
[2019-02-02 11:28] LABS: CALC OSMOLALITY 272 mosm/kg (275-300); CALCIUM 8.3 mg/dL (8.5-10.1); CARBON DIOXIDE 35.1 mmol/L (21.0-32.0); CHLORIDE - SERUM 98 mmol/L (98-107); CREATININE - SERUM 0.6 mg/dL (0.6-1.3); GLUCOSE 168 mg/dL (74-106); POTASSIUM - SERUM 3.7 mmol/L (3.5-5.1); SODIUM 135 mmol/L (136-145); UREA NITROGEN 10 mg/dL (7-18); eGFR NON AFRICAN AMERICAN > 90 mL/min (90-120)
[2019-02-02] MEDS ORDERED: PLAVIX75 MG PO (16:10)
[2019-02-02] MEDS ORDERED: BAYER CHEWABLE81 MG PO (16:10)
--- NOTE | 2019-02-02 16:20 | NUR ---
PATIENT RESTING, SPOUSE AT BEDSIDE. VSS ON 2L NC. RIGHT GROIN DRESSING IS CDI, NO S/S OF BLEEDING OR HEMATOMA. NO C/O PAIN, NUMBNESS, OR TINGLING. NO N/V.
--- NOTE | 2019-02-02 16:50 | NUR ---
ASSISTED PATIENT WITH BEDPAN, PATIENT VOIDED WITHOUT DIFFICULTY. VSS ON 2L NC. RIGHT GROIN DRESSING IS CDI, NO S/S OF BLEEDING OR HEMATOMA. NO C/O PAIN, NUMBNESS, OR TINGLING.
--- NOTE | 2019-02-02 17:20 | NUR ---
PATIENT AWAKE, ASSISTED WITH BEDPAN. VSS ON 2L NC. RIGHT GROIN DRESSING IS CDI, NO S/S OF BLEEDING OR HEMATOMA. PATIENT C/O PAIN IN BACK, STATES PAIN IS CHRONIC, RATES A 5 ON A SCALE OF 1-10, PAIN DESCRIBED AN ACHE.
--- NOTE | 2019-02-02 17:50 | NUR ---
PATIENT AWAKE, VSS ON 2L NC. RIGHT GROIN DRESSING IS CDI, NO S/S OF BLEEDING OR HEMATOMA. SPOUSE AT BEDSIDE. PRESCRIPTION FOR PLAVIX CALLED IN TO [facility] ON [facility] PER REQUEST OF THE PATIENT. CONFIRMED WITH PATIENT THAT IT WAS CALLED IN.
--- NOTE | 2019-02-02 18:20 | NUR ---
PATIENT RESTING, VSS ON 2L NC. RIGHT GROIN DRESSING IS CDI, NO S/S OF BLEEDING OR HEMATOMA.
--- NOTE | 2019-02-02 18:50 | NUR ---
PATIENT AWAKE, STATES THAT PAIN IN BACK "IS A LOT BETTER NOW". RIGHT GROIN DRESSING IS CDI, NO S/S OF BLEEDING OR HEMATOMA. VSS ON 2L NC. NO C/O NUMBNESS OR TINGLING. NO N/V.
--- NOTE | 2019-02-02 19:20 | NUR ---
PATIENT AWAKE, HEAD OF BED ELEVATED TO 45 DEGREES. RIGHT GROIN DRESSING IS CDI, NO S/S OF BLEEDING OR HEMATOMA. NO C/O PAIN, NUMBNESS, OR TINGLING. AT BEDSIDE.
--- NOTE | 2019-02-02 19:50 | NUR ---
IV REMOVED. DISCHARGE INSTRUCTIONS GIVEN TO PATIENT AND SPOUSE, INCLUDING INSTRUCTIONS FOR PLAVIX STARTING 02/03/19 AM, PATIENT AND SPOUSE VOICE UNDERSTANDING. VSS ON ROOM AIR. HEAD OF BED AT 90 DEGREES, RIGHT GROIN DRESSING IS CDI, NO S/S OF BLEEDING OR HEMATOMA.
--- NOTE | 2019-02-02 19:53 | NUR ---
PATIENT TRANSPORTED VIA WHEELCHAIR TO CAR WITH SPOUSE DRIVING, ALL BELONGINGS SENT WITH PATIENT.
== END 2019-02-02 19:53 ==
LOC: D.CATH 10:36
PROVIDERS: ATTEND Internal Medicine Cardiovascular Disease
DX: I25.110 Atherosclerotic heart disease of native coronary artery with unstable angina pectoris (principal); T82.855A Stenosis of coronary artery stent, initial encounter; Z01.812 Encounter for preprocedural laboratory examination

== ENCOUNTER → 2019-03-04 18:33 | Outpatient (CLI) | payer BC ==
[2019-02-02 11:05] VITALS: BMI 27.2
[~2019-03-04 18:33] MED LIST changes: +BAYER CHEWABLE81 MG PO; +CARTIA XT120 MG PO; +ISOSORBIDE MONO30 M1 PO; +SYMBICORT 16010.2 GM INH
== END | disposition home or self-care (01) ==
LOC: D.MAMMO 13:30
PROVIDERS: ATTEND Family Medicine
DX: R92.1 Mammographic calcification found on diagnostic imaging of breast (principal)

== ENCOUNTER → 2019-04-10 09:24 | Outpatient (CLI) | payer BC ==
[2019-02-02 11:05] VITALS: BMI 27.2
== END | disposition home or self-care (01) ==
LOC: D.RT 02-25 08:00
PROVIDERS: ATTEND Internal Medicine Pulmonary Disease
DX: J44.9 Chronic obstructive pulmonary disease, unspecified (principal)

== ENCOUNTER 2019-10-03 14:19 | Emergency (ER) | payer BC ==
[~2019-10-03] VITALS: Ht 147.3 cm; Wt 57.3 kg
[2019-10-03 14:33] VITALS: Ht 147.3 cm; Wt 57.3 kg
[2019-10-03] MEDS ORDERED: ZANAFLEX4 MG PO (14:38)
[2019-10-03] MEDS ORDERED: VITAMIN D3400 UNI1 PO (14:38)
[2019-10-03] MEDS ORDERED: MOBIC7.5 MG PO (14:39)
[2019-10-03] MEDS ORDERED: RANEXA500 MG PO (14:39)
[2019-10-03] MEDS ORDERED: HYDROCODON-ACE1 EA10 PO (14:40)
[2019-10-03] MEDS ORDERED: SINGULAIR10 MG PO (14:40)
[2019-10-03 14:57] LABS: BASOPHILS 0.2 % (0-2); EOSINOPHILS 2.3 % (0-7); HEMATOCRIT 36.7 % (36.0-48.0); HEMOGLOBIN 11.6 g/dL (12-16); IMMATURE GRANULOCYTES 0.2 % (0-5); LYMPHOCYTES 20.2 % (15-50); MCH 27.5 pg (26.0-34.0); MCHC 31.6 g/dL (31.0-37.0); MEAN PLATELET VOLUME 9.6 fL (7.4-10.4); MONOCYTES 7.4 % (2-11); NEUTROPHILS 69.7 % (40-80); RBC 4.22 10x6/uL (4.00-5.40); WBC 9.9 10x3/uL (4.8-10.8)
[2019-10-03 15:00] LABS: CALC OSMOLALITY 280 mosm/kg (275-300); CALCIUM 8.8 mg/dL (8.5-10.1); CARBON DIOXIDE 31.1 mmol/L (21.0-32.0); CHLORIDE - SERUM 101 mmol/L (98-107); CREATININE - SERUM 0.6 mg/dL (0.6-1.3); POTASSIUM - SERUM 4.4 mmol/L (3.5-5.1); SODIUM 140 mmol/L (136-145); UREA NITROGEN 15 mg/dL (7-18); eGFR NON AFRICAN AMERICAN > 90 mL/min (90-120)
[2019-10-03 15:05] LABS: APTT 29.1 SECONDS (22.8-39.4); INR 1.04 (0.85-1.17); PROTIME 13.1 SECONDS (11.6-15.0)
[2019-10-03 15:11] LABS: GLUCOSE 111 mg/dL (74-106)
[2019-10-03 15:15] LABS: PLATELET COUNT 380 10x3/uL (130-400)
[2019-10-03 15:16] LABS: ALBUMIN 3.6 g/dL (3.4-5.0); ALKALINE PHOSPHATASE 53 U/L (46-116); ALT (SGPT) 37 U/L (10-68); BILIRUBIN - TOTAL 0.22 mg/dL (0.2-1.3); CKMB 0.8 U/L (0.0-3.6); CREATINE KINASE 82 UL (21-215); MAGNESIUM - SERUM 1.4 mg/dL (1.8-2.4); PROTEIN - SERUM 7.2 g/dL (6.4-8.2)
[2019-10-03 15:17] LABS: TROPONIN-I < 0.017 ng/mL (0.000-0.060)
[2019-10-03 15:56] LABS: AMYLASE - SERUM 40 U/L (25-115); LIPASE 147 U/L (73-393)
[2019-10-03 18:03] LABS: CKMB 0.8 U/L (0.0-3.6); CREATINE KINASE 72 UL (21-215)
[2019-10-03 18:05] LABS: TROPONIN-I < 0.017 ng/mL (0.000-0.060)
[2019-10-03] MEDS ORDERED: OMEPRAZOLE40 MG PO (18:34)
[2019-10-03 19:05] VITALS: BP 149/61
== END 2019-10-03 19:05 | disposition home or self-care (01) ==
LOC: D.ER 14:19
PROVIDERS: Family Medicine
DX: K21.9 Gastro-esophageal reflux disease without esophagitis (principal); E11.9 Type 2 diabetes mellitus without complications; Z79.84 Long term (current) use of oral hypoglycemic drugs; E07.9 Disorder of thyroid, unspecified; Z95.5 Presence of coronary angioplasty implant and graft; I25.119 Atherosclerotic heart disease of native coronary artery with unspecified angina pectoris; J44.9 Chronic obstructive pulmonary disease, unspecified; J45.909 Unspecified asthma, uncomplicated; Z99.81 Dependence on supplemental oxygen; M54.9 Dorsalgia, unspecified; M54.2 Cervicalgia; M19.90 Unspecified osteoarthritis, unspecified site

== ENCOUNTER → 2020-03-28 12:34 | Outpatient (CLI) | payer BC ==
[2019-10-03 14:33] VITALS: BMI 26.3
[~2020-03-28 12:34] MED LIST changes: +HYDROCODON-ACE1 EA10 PO; +MOBIC7.5 MG PO; +OMEPRAZOLE40 MG PO; +RANEXA500 MG PO; +VITAMIN D3400 UNI1 PO; +ZANAFLEX4 MG PO
== END | disposition home or self-care (01) ==
LOC: D.HCCECHO 12:34
PROVIDERS: ATTEND Internal Medicine Cardiovascular Disease
DX: R06.00 Dyspnea, unspecified (principal)

== ENCOUNTER 2021-03-27 13:30 | Outpatient (CLI) | payer BC ==
[2019-10-03 14:33] VITALS: BMI 26.3
== END 2021-03-27 23:59 | disposition home or self-care (01) ==
LOC: D.MAMMO 13:30
PROVIDERS: ATTEND Nurse Practitioner Family
DX: Z12.31 Encounter for screening mammogram for malignant neoplasm of breast (principal)

== ENCOUNTER 2021-04-12 10:30 | Outpatient (CLI) | payer BC ==
[2019-10-03 14:33] VITALS: BMI 26.3
== END 2021-04-12 11:00 | disposition home or self-care (01) ==
LOC: D.MAMMO 10:30
PROVIDERS: ATTEND Nurse Practitioner Family
DX: R92.1 Mammographic calcification found on diagnostic imaging of breast (principal)